=== PATIENT | female | born 1945 | race Caucasian/White ===

== ENCOUNTER 2023-07-05 02:04 | Inpatient (IN) | payer OTHER, MEDICAID ==
[~2023-07-05] VITALS: Ht 157.5 cm; Wt 73.9 kg
[2023-07-05] VITALS (23 sets, daily range): BP systolic 85–111; BP diastolic 45–85; TEMP 95.9–96.2; O2SAT 94–100
[2023-07-05] MEDS ORDERED: PIPERACI/TAZO 3.375GM/D5W 50ML PB IV ONE (02:13)
[2023-07-05] MEDS ORDERED: VANCOMYCIN 1 GM in IV D5W 250 ML IV ONE (02:30)
[2023-07-05] MEDS ORDERED: PIPERACILLIN /TAZOBACTAM 3.375 G in IV D5W 50 ML IV ONE (02:30)
[2023-07-05] MEDS ORDERED: IV NS 0.9% 1,000 ML BAG IV ONE (02:30)
[2023-07-05 03:15] LABS: HEMATOCRIT 24 % (33-45); HEMOGLOBIN 7.7 g/dL (11.5-14.8); LYMPHOCYTES # (AUTO) 1.1 K/uL (0.8-4.8); LYMPHOCYTES % (AUTO) 8.2 % (20.0-44.0); MEAN CORPUSCULAR HEMOGLOBIN 28 PG (26.0-33.0); MEAN CORPUSCULAR HGB CONC 32 g/dl (31.0-36.0); MEAN CORPUSCULAR VOLUME 87 fL (82-100); MONOCYTES # (AUTO) 0.7 K/uL (0.1-1.30); MONOCYTES % (AUTO) 5.3 % (2.0-12.0); NEUTROPHILS # (AUTO) 11.8 K/uL (1.8-8.9); NEUTROPHILS % (AUTO) 86.5 % (43.0-81.0); PLATELET COUNT (AUTO) 239 K/uL (150-450); RED BLOOD CELL COUNT(AUTO) 2.75 MIL/uL (4.0-5.2); RED CELL DISTRIBUTION WIDTH 18.2 % (11.5-15.0); WHITE BLOOD COUNT (AUTO) 13.6 K/uL (4.3-11.0)
[2023-07-05 03:19] LABS: INR 1.38 (0.91-1.10); PARTIAL THROMBOPLASTIN TIME 37.6 SEC (24.3-34.3); PROTHROMBIN TIME 14.3 SECS (9.2-11.1)
[2023-07-05] MEDS ORDERED: IOHEXOL-350 100 ML VIAL IV ONE (03:20)
[2023-07-05 03:23] LABS: ALANINE AMINOTRANSFERASE 6 U/L (12-78); ALKALINE PHOSPHATASE 237 U/L (46-116); ASPARTATE AMINOTRANSFERASE 17 U/L (15-37); BILIRUBIN,DIRECT 0.2 mg/dL (0.0-0.2); BILIRUBIN,TOTAL 0.5 mg/dL (0.2-1.0); CALCIUM, SERUM 7.5 mg/dL (8.5-10.1); CARBON DIOXIDE 24 mmol/L (21-32); CHLORIDE 104 mmol/L (98-107); CREATININE 0.8 mg/dL (0.6-1.3); GLUCOSE 147 mg/dL (74-106); POTASSIUM 4.3 mmol/L (3.5-5.1); SODIUM SERUM 139 mmol/L (136-145); TOTAL PROTEIN, SERUM 5.7 g/dL (6.4-8.2); UREA NITROGEN, BLOOD 22 mg/dL (7-18)
[2023-07-05 03:37] LABS: LACTIC ACID 1.1 mmol/L (0.4-2.0)
[2023-07-05 03:57] LABS: ALBUMIN 1.3 g/dL (3.4-5.0)
[2023-07-05] MEDS ORDERED: VANCOMYCIN 1 GM /D5W 250 ML PB IV ONE (03:57)
[2023-07-05 04:05] LABS: APPEARANCE,URINE SLIGHTLY CLOUDY (CLEAR); BILIRUBIN,URINE 1+ (NEGATIVE); BLOOD, URINE 2+ Ery/uL (NEGATIVE); COLOR,URINE ORANGE (YELLOW); KETONES,URINE 1+ mg/dL (NEGATIVE); LEUKOCYTE ESTERASE ,URINE TRACE (NEGATIVE); NITRITE, URINE POSITIVE (NEGATIVE); PROTEIN,URINE 2+ mg/dl (NEGATIVE); UGLUCOSE NEGATIVE (NEGATIVE)
[2023-07-05] MEDS ORDERED: ASPIRIN 81 MG TAB.CHEW ONE (04:07)
[2023-07-05] MEDS ORDERED: ASPIRIN 81 MG TAB.CHEW PO ONE (04:30)
[2023-07-05] MEDS ORDERED: HEPARIN SODIUM, PORCINE 5000 UNITS/1 ML VIAL IV ONE ×2 (05:00→06:00)
[2023-07-05] MEDS ORDERED: HEPARIN INFUSION/D5W 500 ML IV PRN (05:00)
[2023-07-05] MEDS ORDERED: HEPARIN INFUSION/D5W 500 ML IV ONE (05:06)
[2023-07-05 05:12] LABS: BAND % (MANUAL) 3 % (0.0-5.0); LYMPHOCYTES % (MANUAL) 6 % (16-48); MONOCYTES % (MANUAL) 7 % (0-11.0); NEUTROPHILS % (MANUAL) 84 (42-76); PLATELET ESTIMATE ADEQUATE
[2023-07-05] MEDS ORDERED: HEPARIN INFUSION/D5W 500 ML IV STA (05:32)
[2023-07-05 05:38] LABS: ADD URINE CULTURE YES; BACTERIA,URINE 2+ /HPF (None Seen)
[2023-07-05 05:39] LABS: MUCUS,URINE Moderate /LPF (None Seen)
[2023-07-05] MEDS ORDERED: HEPARIN SODIUM, PORCINE 5000 UNITS/1 ML VIAL ONE (05:45)
[2023-07-05] MEDS ORDERED: ACETAMINOPHEN 325 MG TABLET PO PRN (06:00)
[2023-07-05] MEDS ORDERED: IV NS 0.9% 1,000 ML IV PRN (06:00)
[2023-07-05] MEDS: HEPARIN INFUSION/D5W 500 ML IV PRN ×2 (06:27→13:01)
[2023-07-05] MEDS: CEFEPIME 2 GM in IV D5W 100 ML IV SCH ×2 (08:00→20:00)
[2023-07-05] MEDS ORDERED: LORA2ORA5 PO (08:36)
[2023-07-05] MEDS ORDERED: MORP100S3 PO (08:36)
[2023-07-05] MEDS: MORPHINE SULFATE INJ 2 MG/ML DISP.SYRIN IV PRN ×2 (12:59→17:56)
[2023-07-05 13:00] LABS: BASOPHILS % (AUTO) 0.2 % (0.0-2.0); HEMATOCRIT 26 % (33-45); HEMOGLOBIN 8.1 g/dL (11.5-14.8); LYMPHOCYTES # (AUTO) 1.8 K/uL (0.8-4.8); LYMPHOCYTES % (AUTO) 10.6 % (20.0-44.0); MEAN CORPUSCULAR HEMOGLOBIN 28 PG (26.0-33.0); MEAN CORPUSCULAR HGB CONC 31 g/dl (31.0-36.0); MEAN CORPUSCULAR VOLUME 88 fL (82-100); MONOCYTES % (AUTO) 5.9 % (2.0-12.0); NEUTROPHILS # (AUTO) 14.2 K/uL (1.8-8.9); NEUTROPHILS % (AUTO) 83.3 % (43.0-81.0); PLATELET COUNT (AUTO) 279 K/uL (150-450); RED BLOOD CELL COUNT(AUTO) 2.92 MIL/uL (4.0-5.2); RED CELL DISTRIBUTION WIDTH 18.8 % (11.5-15.0)
[2023-07-05 13:42] LABS: LYMPHOCYTES % (MANUAL) 6 % (16-48); MONOCYTES % (MANUAL) 4 % (0-11.0); NEUTROPHILS % (MANUAL) 90 (42-76); PLATELET ESTIMATE ADEQUATE
[2023-07-05 16:37] LABS: HEMOGLOBIN 7.7 g/dL (11.5-14.8)
[2023-07-05] MEDS: ONDANSETRON HCL/PF 4 MG/2 ML VIAL IVP PRN (18:03)
[2023-07-05] MEDS: LORAZEPAM INJ 2 MG/ML VIAL IV PRN (21:08)
[2023-07-06] VITALS (40 sets, daily range): BP systolic 70–120; BP diastolic 41–104; TEMP 95–97.1; O2SAT 92–100
[2023-07-06 05:29] LABS: BASOPHILS % (AUTO) 0.2 % (0.0-2.0); HEMATOCRIT 23 % (33-45); HEMOGLOBIN 7.3 g/dL (11.5-14.8); LYMPHOCYTES # (AUTO) 1.5 K/uL (0.8-4.8); MEAN CORPUSCULAR HEMOGLOBIN 28 PG (26.0-33.0); MEAN CORPUSCULAR HGB CONC 31 g/dl (31.0-36.0); MEAN CORPUSCULAR VOLUME 89 fL (82-100); MONOCYTES # (AUTO) 0.8 K/uL (0.1-1.30); NEUTROPHILS % (AUTO) 82.8 % (43.0-81.0); PLATELET COUNT (AUTO) 303 K/uL (150-450); RED BLOOD CELL COUNT(AUTO) 2.64 MIL/uL (4.0-5.2); RED CELL DISTRIBUTION WIDTH 18.5 % (11.5-15.0); WHITE BLOOD COUNT (AUTO) 13.3 K/uL (4.3-11.0)
[2023-07-06 05:39] LABS: ALANINE AMINOTRANSFERASE < 6 U/L (12-78); ALKALINE PHOSPHATASE 195 U/L (46-116); ASPARTATE AMINOTRANSFERASE 18 U/L (15-37); BILIRUBIN,TOTAL 0.3 mg/dL (0.2-1.0); CALCIUM, SERUM 7.3 mg/dL (8.5-10.1); CARBON DIOXIDE 22 mmol/L (21-32); CHLORIDE 106 mmol/L (98-107); CREATININE 0.5 mg/dL (0.6-1.3); GLUCOSE 106 mg/dL (74-106); PHOSPHORUS 3.3 mg/dL (2.5-4.9); POTASSIUM 3.9 mmol/L (3.5-5.1); SODIUM SERUM 138 mmol/L (136-145); TOTAL PROTEIN, SERUM 5.1 g/dL (6.4-8.2); UREA NITROGEN, BLOOD 20 mg/dL (7-18)
[2023-07-06 05:40] LABS: INR 1.1 (0.91-1.10); PROTHROMBIN TIME 11.6 SECS (9.2-11.1)
[2023-07-06 05:42] LABS: ALBUMIN 1.1 g/dL (3.4-5.0)
[2023-07-06] MEDS ORDERED: NOREPINEPHRINE 8MG/250ML RTU 0 ML IV ONE (06:48)
[2023-07-06] MEDS ORDERED: NOREPINEPHRINE 8 MG in IV NS 0.9% 242 ML IV PRN (07:00)
[2023-07-06] MEDS: MORPHINE SULFATE INJ 2 MG/ML DISP.SYRIN IV PRN ×6 (08:38→23:44)
[2023-07-06] MEDS ORDERED: ASPIRIN EC 81 MG TABLET.DR PO SCH (09:00)
[2023-07-06] MEDS: LORAZEPAM INJ 2 MG/ML VIAL IV PRN ×3 (12:30→22:38)
[2023-07-06] MEDS: ONDANSETRON HCL/PF 4 MG/2 ML VIAL IVP PRN ×2 (17:35→18:36)
[2023-07-07] MEDS: LORAZEPAM INJ 2 MG/ML VIAL IV PRN ×2 (01:49→19:39)
[2023-07-07] MEDS: MORPHINE SULFATE INJ 2 MG/ML DISP.SYRIN IV PRN ×6 (02:11→18:21)
[2023-07-07 04:00] VITALS: BP 94/60; TEMP 96.2; O2SAT 96
[2023-07-07 10:00] VITALS: BP 91/67; TEMP 95; O2SAT 98
[2023-07-07 22:11] VITALS: BP 91/67; TEMP 97; O2SAT 98
[2023-07-08] MEDS: MORPHINE SULFATE INJ 2 MG/ML DISP.SYRIN IV PRN ×3 (01:42→17:52)
[2023-07-08 10:00] VITALS: BP 89/65; TEMP 97.7; O2SAT 98
[2023-07-08] MEDS: LORAZEPAM INJ 2 MG/ML VIAL IV PRN ×2 (11:49→17:52)
[2023-07-08 22:00] VITALS: BP 93/50; TEMP 97.7; O2SAT 97
[2023-07-09] MEDS: MORPHINE SULFATE INJ 2 MG/ML DISP.SYRIN IV PRN ×4 (01:38→23:15)
[2023-07-09 10:08] VITALS: BP 102/69; TEMP 98.2; O2SAT 97
[2023-07-09 22:00] VITALS: BP 100/49; TEMP 97; O2SAT 96
[2023-07-10] MEDS: LORAZEPAM INJ 2 MG/ML VIAL IV PRN (02:17)
[2023-07-10] MEDS: MORPHINE SULFATE INJ 2 MG/ML DISP.SYRIN IV PRN ×2 (03:49→06:17)
[2023-07-10 04:00] VITALS: BP 87/56; TEMP 97; O2SAT 99
[2023-07-10 10:00] VITALS: BP 96/71; TEMP 95.6; O2SAT 99
== END 2023-07-10 18:23 | disposition hospice, inpatient (51) | DRG 175 ==
LOC: ER 02:12 → TRANSITION 07:44 → ICU 11:34 → MEDSG1 07-06 16:12
PROVIDERS: ADMIT Student in an Organized Health Care Education/Training Program; ATTEND Nurse Practitioner Acute Care
PROC: 05H633Z Insertion of Infusion Device into Left Subclavian Vein, Percutaneous Approach (ICD-10-PCS; principal; 2023-07-05)
PROC: B547ZZA Ultrasonography of Left Subclavian Vein, Guidance (ICD-10-PCS; 2023-07-05)
DX: I26.99 Other pulmonary embolism without acute cor pulmonale (principal); E43 Unspecified severe protein-calorie malnutrition; J15.69 Pneumonia due to other Gram-negative bacteria; J96.01 Acute respiratory failure with hypoxia; I50.43 Acute on chronic combined systolic (congestive) and diastolic (congestive) heart failure; I21.A1 Myocardial infarction type 2; C79.51 Secondary malignant neoplasm of bone; J98.11 Atelectasis; D68.69 Other thrombophilia; J90 Pleural effusion, not elsewhere classified; C34.90 Malignant neoplasm of unspecified part of unspecified bronchus or lung; C79.70 Secondary malignant neoplasm of unspecified adrenal gland; D63.8 Anemia in other chronic diseases classified elsewhere; E86.0 Dehydration; E88.09 Other disorders of plasma-protein metabolism, not elsewhere classified; Z66 Do not resuscitate; Z79.82 Long term (current) use of aspirin; Z85.118 Personal history of other malignant neoplasm of bronchus and lung; R91.8 Other nonspecific abnormal finding of lung field; Z68.29 Body mass index [BMI] 29.0-29.9, adult; Z51.5 Encounter for palliative care
CPT/HCPCS: 36410; 36415; 70450-TC; 71045-TC; 80048-TC; 80053-TC; 80076-TC; 81001; 83605-TC; 83735-TC; 84100-TC; 84484-TC; 85025-TC; 85027-TC; 85610-TC; 85730-TC; 87040-TC; 87081-TC; 87086-TC; 92526; 92611-TC; 93307-TC; A4223; G0378; J0692; J1644; J2060; J2270; J2405; J2543; J3370; J7030; J7050; J7060; Q9967